=== PATIENT | male | born 1985 | race Caucasian/White ===

== ENCOUNTER 2020-04-26 17:23 | Emergency (ER) | payer BC ==
[~2020-04-26] VITALS: Ht 172.7 cm; Wt 115.2 kg
[2020-04-26] MEDS ORDERED: COZAAR 25 MG TA25 M1 PO (17:40)
[2020-04-26] MEDS ORDERED: NORVASC 2.5 MG2.5 M1 PO (17:40)
[2020-04-26 17:45] LABS: URINE BILIRUBIN NEGATIVE (Negative); URINE BLOOD NEGATIVE (Negative); URINE CLARITY CLEAR; URINE COLOR YELLOW; URINE GLUCOSE-RANDOM NEGATIVE (Negative); URINE KETONES NEGATIVE (Negative); URINE LEUKOCYTES-REFLEX NEGATIVE (Negative); URINE NITRITE-REFLEX NEGATIVE (Negative); URINE PROTEIN NEGATIVE (Negative); URINE UROBILINOGEN 0.2 E.U./dl (0.2-1.0)
[2020-04-26 17:55] LABS: ABSOLUTE BASOPHILS 0.1 thou/uL (0.0-0.2); ABSOLUTE EOSINOPHILS 0.3 thou/uL (0.0-0.7); ABSOLUTE MONOCYTES 0.7 thou/uL (0.0-1.2); ABSOLUTE NEUTROPHILS 4.8 thou/uL (1.6-8.1); BASOPHILS 1.4 %; EOSINOPHILS 3.6 %; HEMATOCRIT 50.5 % (42.0-52.0); HEMOGLOBIN 16.9 gm/dL (14.0-18.0); LYMPHOCYTES 25.9 %; MCH 31.2 pg (26.0-34.0); MCHC 33.5 g/dL (28.0-37.0); MCV 93.2 fL (80.0-100.0); MONOCYTES 8.4 %; MPV 8.2 fl. (7.2-11.1); NUCLEATED RBCS 0 /100WBC; PLATELET COUNT* 220 thou/uL (150-400); POLYS 60.7 %; RBC 5.42 mil/uL (4.50-6.00); RDW-CV 14.3 % (10.5-14.5); WBC 7.8 thou/uL (4.0-11.0)
[2020-04-26 18:02] LABS: CALCIUM 9.1 mg/dL (8.5-10.1); CREATININE 1.2 mg/dL (0.6-1.3); POTASSIUM 3.7 mmol/L (3.5-5.1)
[2020-04-26 18:06] LABS: ALBUMIN 4.4 g/dL (3.4-5.0); TOTAL BILIRUBIN 1.1 mg/dL (<0.1-1.0); TOTAL PROTEIN 7.7 g/dL (6.4-8.2)
[2020-04-26] MEDS ORDERED: NORCO5 PO (19:27)
[2020-04-26] MEDS ORDERED: ONDANSETRON HCL4 M2 PO (19:27)
[2020-04-26 19:43] VITALS: BP 126/69
[2020-04-30] MEDS ORDERED: NORCO5 PO (16:17)
== END 2020-04-26 19:44 | disposition home or self-care (01) ==
LOC: M.ERS 17:23
PROVIDERS: Nurse Practitioner Family
DX: R10.31 Right lower quadrant pain (principal); Z87.19 Personal history of other diseases of the digestive system; Z20.822 Contact with and (suspected) exposure to COVID-19; I10 Essential (primary) hypertension; E78.00 Pure hypercholesterolemia, unspecified

== ENCOUNTER → 2020-04-30 | Day surgery (SDC) | payer BC ==
[~2020-04-30] MED LIST: COZAAR 25 MG TA25 M1 PO; NORCO5 PO; NORVASC 2.5 MG2.5 M1 PO; ONDANSETRON HCL4 M2 PO
--- NOTE | ~2020-04-30 | OP ---
[facility] [address] [place] [address] OPERATIVE REPORT Name: KANG MARKS Room: [facility]#: [id number] Admission: 04/30/20 Attend Phys: Rod Minor Discharge: Date of : 83 Report #: [id number] THIS REPORT FOR: cc: Jas Clancy Ghaison F. DO ~ Rod Minor MD DATE OF SERVICE: 04/30/2020 PREOPERATIVE DIAGNOSIS: Incarcerated recurrent ventral incisional hernia. POSTOPERATIVE DIAGNOSIS: Incarcerated recurrent ventral incisional hernia. OPERATION: Laparoscopic repair of recurrent incarcerated ventral incisional hernia with mesh. SURGEON: Rod Minor MD. ANESTHESIA: General. ESTIMATED BLOOD LOSS: Minimal. SPECIMEN: None. DESCRIPTION OF PROCEDURE: After informed consent was obtained, the patient was brought to the operating room and placed supine. SCDs were placed and working, preoperative antibiotics were administered, general anesthesia was induced. The abdomen was prepped and draped in the usual sterile fashion. A 5 mm incision was made in the left upper quadrant. A 5 mm trocar was placed under direct vision. Pneumoperitoneum was established. A left-sided 8 mm trocar was placed and a right-sided 5 mm trocar was placed. He had a hernia just inferior to his previous repair. The defect measured 1 cm. He had incarcerated preperitoneal fat. This was all reduced. I then inserted an 11 cm Bard Ventralight mesh. It was tacked up to the abdominal wall with absorbable tacks. Three tacks were placed. This covered the defect widely. The ports were removed under direct vision. The skin was closed with 4-0 Monocryl. Incisions were dressed with Steri-Strips. COMPLICATIONS: None. DISPOSITION: The patient was taken to recovery in satisfactory condition. By: [id number] Minor MD /nt
--- NOTE | 2020-05-01 10:36 | EKG ---
[place] [address] ELECTROCARDIOGRAM REPORT Name: KANG MARKS Room: [facility]#: [id number] Admission: 04/30/20 Attend Phys: oRd Perry Discharge: Date of : 83 Date of Service: 04/30/20 1356 Report #: [id number] THIS REPORT FOR: //name// [facility] Test Date: 2020-04-30 Test Time: 13:56:51 Pat Name: KANG MARKS Department: Room: Gender: Philosophy Professor: : 1985 Requested By: Rod Minor Order Number: [id number] Reading MD: Salomón Gandhi Measurements Intervals [place] Rate: 70 P: 32 CT: 165 QRS: 237 QRSD: 104 T: 27 QT: 399 QTc: 431 Interpretive Statements Sinus rhythm left axis Probable right ventricular hypertrophy No previous ECG available for comparison Electronically Signed On 05-01-2020 10:36:26 [employer] by Salomón Gandhi [email or web address] <ELECTRONICALLY SIGNED> By: Salomón Gandhi MD, [facility] 05/01/20 1036 1356 1356 Salomón Gandhi MD, FAC /EPI
== END | disposition home or self-care (01) ==
LOC: M.SUR 08:27
PROVIDERS: ATTEND Surgery
DX: K43.0 Incisional hernia with obstruction, without gangrene (principal); R10.31 Right lower quadrant pain; I10 Essential (primary) hypertension; K21.9 Gastro-esophageal reflux disease without esophagitis; Z98.890 Other specified postprocedural states; Z79.899 Other long term (current) drug therapy